=== PATIENT | female | born 1945 ===

== ENCOUNTER 2018-02-25 23:08 | Observation (INO) ==
[2018-02-26] MEDS ORDERED: LABETALOL 20 MG/4 ML SYRINGE IV STA (00:05)
[2018-02-26] MEDS ORDERED: LABETALOL 100 MG/20 ML VIAL IV ONE (00:10)
[2018-02-26] MEDS ORDERED: ONDANSETRON 4 MG/2 ML VIAL IV PRN (00:54)
[2018-02-26] MEDS ORDERED: MAGNESIUM SULF RIDER 4 GM in PREMIX 1 EACH IV PRN (00:54)
[2018-02-26] MEDS ORDERED: diphenhydrAMINE CAP 25 MG CAPSULE PO PRN (00:54)
[2018-02-26] MEDS ORDERED: LACTULOSE 20 GM/30 ML UDCUP PO PRN (00:54)
[2018-02-26] MEDS ORDERED: hydrALAZINE 20 MG/1 ML VIAL IV PRN (00:54)
[2018-02-26] MEDS ORDERED: ACETAMINOPHEN 325 MG TABLET PO PRN (00:54)
[2018-02-26] MEDS ORDERED: MAGNESIUM SULF RIDER 2 GM in PREMIX 1 EACH IV PRN (00:54)
[2018-02-26] MEDS ORDERED: SODIUM CHLORIDE 0.9% 1,000 ML IV SCH (01:00)
[2018-02-26 01:23] LABS: Apearance,Urine CLEAR (Clear); Bacteria,Urine Occasional /HPF (Few); Bilirubin,Urine Negative (Negative); Blood, Urine Negative (Negative); Glucose,Urine (UA) Negative (Negative); Ketones,Urine Negative (Negative); Mucus,Urine Occasional /LPF (Occasional); Nitrite,Urine Negative (Negative); Protein,Urine Negative; RBC,Urine <1 /HPF (0-4); Squamous Epithelial Cell,Urine Occasional /HPF (0-10); Urine Color Yellow (Yellow); Urine Specific Gravity 1.009 (1.001-1.035); WBC,Urine 2 /HPF (0-6)
[2018-02-26 02:50] LABS: Basophils % 0.4 % (0.0-0.8); Eosinophils # 0.1 10*3/uL (0.0-0.87); Eosinophils % 1.8 % (0.00-10.9); Hematocrit 35.8 VOL% (35.7-47.0); Hemoglobin 12.9 GM/DL (12.0-16.0); Immature Granulocytes % 0.4 %; Immature Granulocytes Absolute 0.03 #; Lymphocytes # 2.3 10*3/uL (1.4-4.0); Mean Corpuscular Hemoglobin 32 PG (27-34); Mean Corpuscular Volume 88.6 FL (87-102); Mean Platelet Volume 11.1 FL (9.6-12.0); Monocytes # 0.6 10*3/uL (0.11-0.8); Monocytes % 8.7 % (1.7-12.7); Neutrophils % 56.7 % (38.7-73.9); Platelet Count 124 T/CUMM (130-400); Red Blood Count 4.04 MC/CUMM (3.8-5.5); Red Cell Distribution Width 12.9 % (9.3-17.3)
[2018-02-26 03:25] LABS: Bilirubin,Total 0.7 MG/DL (0.2-1.0); Calcium 8.5 MG/DL (8.5-10.1); Osmolality,Calculated 289.4 MOS/KG (273-304); Potassium 3.2 MMOL/L (3.5-5.1); Total Protein 6.3 G/DL (6.4-8.3)
[2018-02-26 03:26] LABS: Risk Ratio 2.87; Thyroid Stimulating Hormone 3.57 uIU/ml (0.358-3.74); VLDL CHOLESTEROL 14.8 MG/DL
[2018-02-26] MEDS: POTASSIUM CHLORIDE 20 MEQ TABLET PO PRN ×2 (09:30→16:34)
[2018-02-26] MEDS: metFORMIN 500 MG TABLET PO SCH ×2 (09:31→21:15)
[2018-02-26] MEDS: MECLIZINE 25 MG TABLET PO SCH ×3 (09:31→21:15)
[2018-02-26] MEDS: ASPIRIN EC 81 MG TABLET PO SCH (09:32)
[2018-02-26] MEDS: PANTOPRAZOLE 40 MG TABLET PO SCH (09:32)
[2018-02-26] MEDS ORDERED: amLODIPine 5 MG TABLET PO SCH (10:30)
[2018-02-26] MEDS: amLODIPine 10 MG TABLET PO SCH (13:15)
[2018-02-26] MEDS: METOPROLOL SUCCINATE XL 100 MG TABLET PO SCH (13:15)
[2018-02-27] MEDS: metFORMIN 500 MG TABLET PO SCH ×2 (09:29→20:52)
[2018-02-27] MEDS: PANTOPRAZOLE 40 MG TABLET PO SCH (09:29)
[2018-02-27] MEDS: MECLIZINE 25 MG TABLET PO SCH ×3 (09:29→20:52)
[2018-02-27] MEDS: amLODIPine 10 MG TABLET PO SCH (09:29)
[2018-02-27] MEDS: METOPROLOL SUCCINATE XL 100 MG TABLET PO SCH (09:30)
[2018-02-27] MEDS: ASPIRIN EC 81 MG TABLET PO SCH (09:30)
[2018-02-28] MEDS: AMOXICILLIN 500 MG CAPSULE PO SCH ×3 (09:22→21:15)
[2018-02-28] MEDS: MECLIZINE 25 MG TABLET PO SCH ×3 (09:23→21:15)
[2018-02-28] MEDS: metFORMIN 500 MG TABLET PO SCH ×2 (09:23→21:15)
[2018-02-28] MEDS: amLODIPine 10 MG TABLET PO SCH (09:23)
[2018-02-28] MEDS: ASPIRIN EC 81 MG TABLET PO SCH (09:23)
[2018-02-28] MEDS: PANTOPRAZOLE 40 MG TABLET PO SCH (09:23)
[2018-02-28] MEDS: METOPROLOL SUCCINATE XL 100 MG TABLET PO SCH (09:23)
[2018-02-28] MEDS ORDERED: ROSUVASTATIN 10 MG TABLET PO SCH (21:00)
[2018-02-28] MEDS: CIPROFLOXACIN/DEXAMETHASONE OTIC SUSP 7.5 ML BOTTLE BOTH EARS SCH (21:15)
[2018-02-28] MEDS: MUPIROCIN 2% OINT 22 GM TUBE TOP SCH (21:16)
[2018-03-01 04:18] LABS: Basophils % 0.6 % (0.0-0.8); Eosinophils # 0.3 10*3/uL (0.0-0.87); Eosinophils % 3.6 % (0.00-10.9); Hematocrit 37.4 VOL% (35.7-47.0); Immature Granulocytes % 0.1 %; Immature Granulocytes Absolute 0.01 #; Lymphocytes # 2.5 10*3/uL (1.4-4.0); Lymphocytes % 36.3 % (21.3-54.2); Mean Corpuscular HGB Conc 34.8 GM/DL (32-36); Mean Corpuscular Hemoglobin 32 PG (27-34); Mean Corpuscular Volume 92.6 FL (87-102); Mean Platelet Volume 10.9 FL (9.6-12.0); Monocytes # 0.6 10*3/uL (0.11-0.8); Monocytes % 8.3 % (1.7-12.7); Neutrophils # 3.6 10*3/uL (1.4-7.4); Neutrophils % 51.1 % (38.7-73.9); Platelet Count 139 T/CUMM (130-400); Red Blood Count 4.04 MC/CUMM (3.8-5.5); Red Cell Distribution Width 12.4 % (9.3-17.3)
[2018-03-01 04:53] LABS: Calcium 8.4 MG/DL (8.5-10.1); Osmolality,Calculated 288.7 MOS/KG (273-304)
[2018-03-01] MEDS: PANTOPRAZOLE 40 MG TABLET PO SCH (08:27)
[2018-03-01] MEDS: ASPIRIN EC 81 MG TABLET PO SCH (08:28)
[2018-03-01] MEDS: AMOXICILLIN 500 MG CAPSULE PO SCH ×2 (08:28→15:32)
[2018-03-01] MEDS: metFORMIN 500 MG TABLET PO SCH (08:28)
[2018-03-01] MEDS: MECLIZINE 25 MG TABLET PO SCH ×2 (08:28→15:28)
[2018-03-01] MEDS: amLODIPine 10 MG TABLET PO SCH (08:28)
[2018-03-01] MEDS: CIPROFLOXACIN/DEXAMETHASONE OTIC SUSP 7.5 ML BOTTLE BOTH EARS SCH (08:29)
[2018-03-01] MEDS: METOPROLOL SUCCINATE XL 100 MG TABLET PO SCH (08:29)
[2018-03-01] MEDS: MUPIROCIN 2% OINT 22 GM TUBE TOP SCH (08:30)
[2018-03-01] MEDS ORDERED: FLUCONAZOLE 150 MG TABLET PO ONE (11:26)
[2018-03-01 12:29] VITALS: BP 163/70
== END 2018-03-01 16:00 | disposition home or self-care (01) ==
LOC: EDUNIT# → N.EDINP 23:08 → N.ED 23:08 → SUATTDRO 02-26 00:54 → N.TELES 02-26 01:26
PROVIDERS: ADMIT Internal Medicine; ATTEND Internal Medicine

== ENCOUNTER 2022-02-19 20:07 | Observation (INO) ==
[2022-02-19] MEDS ORDERED: PANTOPRAZOLE 40 MG VIAL IV STA (20:42)
[2022-02-19] MEDS ORDERED: ONDANSETRON 4 MG/2 ML VIAL IV STA (20:42)
[2022-02-19] MEDS ORDERED: ALUM/MAG/SIMETH/LIDO VISC 1:1 30 ML BOTTLE PO STA (20:42)
[2022-02-19] MEDS ORDERED: SODIUM CHLORIDE 0.9% 500 ML IV STA (20:42)
[2022-02-19] MEDS ORDERED: HYDROmorphone 1 MG/1 ML SYRINGE IV STA (20:42)
[2022-02-19 21:52] LABS: Basophils % 0.6 % (0.0-0.8); Eosinophils # 0.1 10*3/uL (0.0-0.87); Eosinophils % 1.9 % (0.00-10.9); Hematocrit 36.1 VOL% (35.7-47.0); Hemoglobin 13.1 GM/DL (12.0-16.0); Immature Granulocytes % 0.2 %; Immature Granulocytes Absolute 0.01 #; Lymphocytes # 1.5 10*3/uL (1.4-4.0); Lymphocytes % 32.1 % (21.3-54.2); Mean Corpuscular HGB Conc 36.3 GM/DL (32-36); Mean Corpuscular Volume 93.3 FL (87-102); Mean Platelet Volume 11.7 FL (9.6-12.0); Monocytes # 0.5 10*3/uL (0.11-0.8); Monocytes % 9.9 % (1.7-12.7); Neutrophils % 55.3 % (38.7-73.9); Platelet Count 77 T/CUMM (130-400); Red Blood Count 3.87 MC/CUMM (3.8-5.5); Red Cell Distribution Width 12.9 % (9.3-17.3); White Blood Count 4.6 T/CUMM (4-12)
[2022-02-19 22:11] LABS: Albumin 2.7 G/DL (3.4-5.0); Bilirubin,Total 1.4 MG/DL (0.20-1.00); Calcium 8.7 MG/DL (8.5-10.1); Osmolality,Calculated 289.7 MOS/KG (273-304); Potassium 2.9 MMOL/L (3.5-5.1); Total Protein 5.9 G/DL (6.4-8.2)
[2022-02-19] MEDS ORDERED: KETOROLAC 30 MG/1 ML VIAL IV STA (22:21)
[2022-02-19] MEDS ORDERED: MAGNESIUM SULF RIDER 2 GM/50 ML PREMIX IV STA (22:21)
[2022-02-19 22:24] LABS: Platelet Estimate Adequate
[2022-02-19] MEDS ORDERED: PROMETHAZINE 25 MG/1 ML VIAL IM STA (22:59)
[2022-02-20] MEDS ORDERED: POTASSIUM CHLORIDE 20 MEQ TABLET PO STA (00:14)
[2022-02-20] MEDS ORDERED: POTASSIUM CHLORIDE RIDER 10 MEQ/100 ML PREMIX IV PRN (00:15)
[2022-02-20] MEDS ORDERED: diphenhydrAMINE CAP 25 MG CAPSULE PO PRN (00:47)
[2022-02-20] MEDS ORDERED: NICOTINE 21 MG/24 HR PATCH TRANSDERM PRN (00:47)
[2022-02-20] MEDS ORDERED: PROMETHAZINE 25 MG/1 ML VIAL IM PRN (00:47)
[2022-02-20] MEDS ORDERED: ACETAMINOPHEN 325 MG TABLET PO PRN (00:47)
[2022-02-20] MEDS ORDERED: DEXTROSE 10% 250 ML BAG IV PRN (00:47)
[2022-02-20] MEDS ORDERED: guaiFENesin/DM ER 600-30 MG TABLET PO PRN (00:47)
[2022-02-20] MEDS ORDERED: ONDANSETRON 4 MG/2 ML VIAL IV PRN (00:47)
[2022-02-20] MEDS ORDERED: hydrALAZINE 20 MG/1 ML VIAL IV PRN (00:47)
[2022-02-20] MEDS ORDERED: GLUCAGON 1 MG VIAL IM PRN (00:47)
[2022-02-20] MEDS: ALBUTEROL/IPRATROPIUM 3 ML NEB RESP TX SCH ×4 (01:14→19:40)
[2022-02-20 02:43] LABS: Bacteria,Urine Occasional /HPF (Few); Bilirubin,Urine Negative (Negative); Blood, Urine Moderate mg/dL (Negative); Glucose,Urine (UA) Negative (Negative); Ketones,Urine Negative (Negative); Mucus,Urine Occasional /LPF (Occasional); Nitrite,Urine Positive (Negative); Protein,Urine Negative (Negative); RBC,Urine 1 /HPF (0-4); Squamous Epithelial Cell,Urine Occasional /HPF (0-10); Urine Appearance Clear (Clear); Urine Color Yellow (Yellow); Urine Specific Gravity 1.015 (1.001-1.035)
[2022-02-20 04:31] LABS: Basophils % 0.2 % (0.0-0.8); Hematocrit 37.4 VOL% (35.7-47.0); Hemoglobin 13.3 GM/DL (12.0-16.0); Immature Granulocytes % 0.2 %; Immature Granulocytes Absolute 0.01 #; Lymphocytes # 0.9 10*3/uL (1.4-4.0); Lymphocytes % 19.9 % (21.3-54.2); Mean Corpuscular HGB Conc 35.6 GM/DL (32-36); Mean Corpuscular Volume 94.4 FL (87-102); Mean Platelet Volume 11.7 FL (9.6-12.0); Monocytes # 0.3 10*3/uL (0.11-0.8); Monocytes % 5.5 % (1.7-12.7); Neutrophils % 74.2 % (38.7-73.9); Platelet Count 76 T/CUMM (130-400); Red Blood Count 3.96 MC/CUMM (3.8-5.5); White Blood Count 4.7 T/CUMM (4-12)
[2022-02-20 04:48] LABS: Calcium 8.2 MG/DL (8.5-10.1); Osmolality,Calculated 294.4 MOS/KG (273-304); Potassium 3.4 MMOL/L (3.5-5.1)
[2022-02-20 04:49] LABS: Platelet Estimate Decreased
[2022-02-20 08:09] LABS: Risk Ratio 2.42; VLDL Cholesterol 12.2 MG/DL
[2022-02-20] MEDS ORDERED: DEXTROSE 5% NACL 0.45% 1,000 ML IV SCH (09:00)
[2022-02-20] MEDS: INSULIN LISPRO 100 UNIT/ML SUBCUT SCH ×4 (09:42→22:14)
[2022-02-20] MEDS: DEXT 5% NACL 0.45% KCL 20 MEQ 20 MEQ/1,000 ML BAG IV SCH (09:46)
[2022-02-20] MEDS: PANTOPRAZOLE 40 MG TABLET PO SCH (09:46)
[2022-02-20] MEDS: HEPARIN 5,000 UNIT/1 ML VIAL SUBCUT SCH ×2 (09:46→22:12)
[2022-02-20] MEDS ORDERED: LEVOFLOXACIN INJ 750 MG/150 ML PREMIX IV SCH (13:30)
[2022-02-20 15:26] LABS: Total Protein 5.9 G/DL (6.4-8.2)
[2022-02-20] MEDS: lisinopriL 20 MG TABLET PO SCH (17:04)
[2022-02-20] MEDS: amLODIPine 5 MG TABLET PO SCH (17:04)
[2022-02-21] MEDS: ALBUTEROL/IPRATROPIUM 3 ML NEB RESP TX SCH ×3 (02:26→12:38)
[2022-02-21 06:36] LABS: Basophils % 0.3 % (0.0-0.8); Eosinophils % 0.1 % (0.00-10.9); Hematocrit 36.6 VOL% (35.7-47.0); Hemoglobin 12.7 GM/DL (12.0-16.0); Immature Granulocytes % 0.4 %; Immature Granulocytes Absolute 0.04 #; Lymphocytes # 1.5 10*3/uL (1.4-4.0); Lymphocytes % 13.7 % (21.3-54.2); Mean Corpuscular HGB Conc 34.7 GM/DL (32-36); Mean Corpuscular Volume 96.6 FL (87-102); Mean Platelet Volume 12.3 FL (9.6-12.0); Monocytes # 0.6 10*3/uL (0.11-0.8); Monocytes % 5.8 % (1.7-12.7); Neutrophils % 79.7 % (38.7-73.9); Red Blood Count 3.79 MC/CUMM (3.8-5.5); Red Cell Distribution Width 13.1 % (9.3-17.3); White Blood Count 10.9 T/CUMM (4-12)
[2022-02-21 06:37] LABS: Platelet Count 82 T/CUMM (130-400)
[2022-02-21 06:52] LABS: Albumin 2.3 G/DL (3.4-5.0); Bilirubin,Total 1.5 MG/DL (0.20-1.00); Calcium 8.2 MG/DL (8.5-10.1); Potassium 3.2 MMOL/L (3.5-5.1); Total Protein 5.7 G/DL (6.4-8.2)
[2022-02-21 07:39] LABS: Platelet Estimate Decreased
[2022-02-21] MEDS ORDERED: NITROGLYCERIN SL 0.4 MG TABLET SL PRN (08:09)
[2022-02-21] MEDS ORDERED: ISOSORBIDE MONONITRATE 30 MG TABLET PO SCH (09:00)
[2022-02-21] MEDS ORDERED: ASPIRIN EC 81 MG TABLET PO SCH (09:00)
[2022-02-21] MEDS ORDERED: METOPROLOL SUCCINATE XL 25 MG TABLET PO SCH (09:00)
[2022-02-21] MEDS: amLODIPine 5 MG TABLET PO SCH (09:59)
[2022-02-21] MEDS: PANTOPRAZOLE 40 MG TABLET PO SCH (09:59)
[2022-02-21] MEDS: lisinopriL 20 MG TABLET PO SCH (09:59)
[2022-02-21] MEDS: INSULIN LISPRO 100 UNIT/ML SUBCUT SCH ×2 (09:59→11:58)
[2022-02-21] MEDS: HEPARIN 5,000 UNIT/1 ML VIAL SUBCUT SCH (10:00)
[2022-02-21] MEDS: DEXT 5% NACL 0.45% KCL 20 MEQ 20 MEQ/1,000 ML BAG IV SCH ×2 (10:00→11:58)
[2022-02-21 11:43] VITALS: BP 149/54
[2022-02-23 07:43] LABS: Immunoglobulin G (Chem) 1220 MG/DL (700-1600); Total Protein (Chem) 5.9 G/DL (6.4-8.3)
[2022-02-23 07:44] LABS: Immunoglobulin A (Chem) 324 MG/DL (70-400); Immunoglobulin M (Chem) 89 MG/DL (40-230)
[2022-02-23 09:04] LABS: Albumin (SPE) 3.5 G/DL (3.2-5.3); Albumin (SPE) Rel % 59.3 %; Alpha 1 (SPE) 0.2 G/DL (0.1-0.4); Alpha 1 (SPE) Rel % 2.6 %; Alpha 2 (SPE) 0.5 G/DL (0.4-1.0); Alpha 2 (SPE) Rel % 8.3 %; Beta (SPE) 0.6 G/DL (0.5-1.1); Beta (SPE) Rel % 9.7 %; Gamma (SPE) 1.2 G/DL (0.7-1.7); Gamma (SPE) Rel % 20.1 %
[2022-02-23] MEDS ORDERED: diphenhydrAMINE CAP 50 MG CAPSULE PO ONE (09:12)
[2022-02-23] MEDS ORDERED: DIAZEPAM 5 MG TABLET PO ONE (09:12)
[2022-02-23 14:40] LABS: Kappa Free Light Chain 5.56 mg/dL; Lambda Free Light Chain 5.15 mg/dL
== END 2022-02-21 15:08 | disposition home or self-care (01) ==
LOC: EDUNIT# → EDBD → N.EDINP 20:07 → N.ED 20:07 → SUATTDRO 02-20 00:47 → N.EDINP 02-20 02:37 → N.TELEN 02-20 03:07
PROVIDERS: ADMIT Emergency Medicine; ATTEND Family Medicine

== ENCOUNTER 2022-06-05 09:06 | Inpatient (IN) ==
[2022-06-05 09:55] LABS: Basophils % 0.6 % (0.0-0.8); Eosinophils # 0.1 10*3/uL (0.0-0.87); Eosinophils % 0.9 % (0.00-10.9); Hematocrit 41.1 VOL% (35.7-47.0); Hemoglobin 14.5 GM/DL (12.0-16.0); Immature Granulocytes % 0.3 %; Immature Granulocytes Absolute 0.02 #; Lymphocytes # 1.6 10*3/uL (1.4-4.0); Lymphocytes % 23.8 % (21.3-54.2); Mean Corpuscular HGB Conc 35.3 GM/DL (32-36); Mean Corpuscular Volume 94.5 FL (87-102); Mean Platelet Volume 11.6 FL (9.6-12.0); Monocytes # 0.6 10*3/uL (0.11-0.8); Monocytes % 8.7 % (1.7-12.7); Neutrophils % 65.7 % (38.7-73.9); Red Blood Count 4.35 MC/CUMM (3.8-5.5); Red Cell Distribution Width 13.2 % (9.3-17.3); White Blood Count 6.6 T/CUMM (4-12)
[2022-06-05 09:56] LABS: Bilirubin,Total 1.2 MG/DL (0.20-1.00); Calcium 9.2 MG/DL (8.5-10.1); Osmolality,Calculated 294.4 MOS/KG (273-304); Platelet Count 95 T/CUMM (130-400); Potassium 3.5 MMOL/L (3.5-5.1); Total Protein 6.3 G/DL (6.4-8.2)
[2022-06-05 09:57] LABS: Bilirubin,Urine Negative (Negative); Blood, Urine Large mg/dL (Negative); Glucose,Urine (UA) Negative (Negative); Ketones,Urine Negative (Negative); Nitrite,Urine Negative (Negative); Protein,Urine 30 mg/dL (Negative); RBC,Urine 243 /HPF (0-4); Squamous Epithelial Cell,Urine Occasional /HPF (0-10); Urine Appearance Clear (Clear); Urine Color Yellow (Yellow); Urine pH 7.5 (4.5-8.0)
[2022-06-05 10:00] LABS: INR 1.1; PT Patient Result 11.9 SECS (10.1-12.1); Partial Thromboplastin Time 26.2 SECS (23.7-32.9)
[2022-06-05] MEDS ORDERED: ASPIRIN CHEW 81 MG TABLET PO STA (10:02)
[2022-06-05] MEDS: ENOXAPARIN 80 MG/0.8 ML SYRINGE SUBCUT SCH ×2 (11:49→23:03)
[2022-06-05] MEDS ORDERED: ONDANSETRON 4 MG/2 ML VIAL IV PRN (11:56)
[2022-06-05] MEDS ORDERED: MAGNESIUM HYDROXIDE SUSP 30 ML UDCUP PO PRN (11:56)
[2022-06-05] MEDS ORDERED: MAGNESIUM SULF RIDER 2 GM/50 ML PREMIX IV PRN ×2 (11:56→14:58)
[2022-06-05] MEDS ORDERED: MORPHINE 2 MG/1 ML SYRINGE IV PRN (11:56)
[2022-06-05] MEDS ORDERED: ACETAMINOPHEN 325 MG TABLET PO PRN (11:56)
[2022-06-05] MEDS ORDERED: POTASSIUM CHLORIDE 20 MEQ TABLET PO PRN ×2 (11:56)
[2022-06-05] MEDS ORDERED: BISACODYL 5 MG TABLET PO PRN (11:56)
[2022-06-05] MEDS ORDERED: ALUM/MAG/SIMETH/LIDO VISC 1:1 30 ML BOTTLE PO PRN (11:56)
[2022-06-05] MEDS ORDERED: MAGNESIUM SULF RIDER 4 GM/100 ML PREMIX IV PRN (11:56)
[2022-06-05] MEDS ORDERED: NITROGLYCERIN 2% OINT 1 INCH/GM PACK TOP SCH (12:00)
[2022-06-05] MEDS ORDERED: METOPROLOL TARTRATE 25 MG TABLET PO ONE (14:09)
[2022-06-05] MEDS ORDERED: hydrALAZINE 20 MG/1 ML VIAL IV PRN (14:28)
[2022-06-05] MEDS ORDERED: POTASSIUM CHLORIDE RIDER 10 MEQ/100 ML PREMIX IV PRN (14:58)
[2022-06-05] MEDS ORDERED: DIAZEPAM 5 MG TABLET PO ONE (14:58)
[2022-06-05] MEDS ORDERED: diphenhydrAMINE CAP 50 MG CAPSULE PO ONE (14:58)
[2022-06-05] MEDS: SODIUM CHLORIDE 0.9% 1,000 ML IV SCH (15:49)
[2022-06-05] MEDS ORDERED: MIDAZOLAM 2 MG/2 ML VIAL ONE (15:52)
[2022-06-05] MEDS ORDERED: VERAPAMIL 5 MG/2 ML VIAL ONE (15:52)
[2022-06-05] MEDS ORDERED: fentaNYL 100 MCG/2 ML VIAL ONE (15:52)
[2022-06-05] MEDS ORDERED: NITROGLYCERIN DRIP 50 MG/250 ML BOTTLE IV ONE (15:52)
[2022-06-05] MEDS: ISOSORBIDE MONONITRATE 30 MG TABLET PO SCH (17:55)
[2022-06-05] MEDS: METOPROLOL TARTRATE 50 MG TABLET PO SCH (21:47)
[2022-06-05] MEDS: DOCUSATE SODIUM 100 MG CAPSULE PO SCH (21:47)
[2022-06-06 04:40] LABS: Calcium 8.4 MG/DL (8.5-10.1); Osmolality,Calculated 285.8 MOS/KG (273-304); Potassium 3.6 MMOL/L (3.5-5.1)
[2022-06-06 04:51] LABS: Risk Ratio 2.42; Thyroid Stimulating Hormone 1.42 uIU/ml (0.358-3.74); VLDL Cholesterol 12.2 MG/DL
[2022-06-06 07:07] LABS: Barbiturates Screen,Urine Negative (Negative); Benzodiazepines Screen,Urine Positive (Negative); Cannabinoid Screen,Urine Negative (Negative); Opiate Screen,Urine Negative (Negative); Phencyclidine Screen,Urine Negative (Negative)
[2022-06-06] MEDS: SODIUM CHLORIDE 0.9% 1,000 ML IV SCH ×2 (07:29→07:30)
[2022-06-06 08:56] LABS: Basophils # 0.1 10*3/uL (0.0-0.2); Basophils % 0.8 % (0.0-0.8); Eosinophils # 0.2 10*3/uL (0.0-0.87); Eosinophils % 2.7 % (0.00-10.9); Hematocrit 35.6 VOL% (35.7-47.0); Hemoglobin 12.5 GM/DL (12.0-16.0); Immature Granulocytes % 0.3 %; Immature Granulocytes Absolute 0.02 #; Lymphocytes # 1.2 10*3/uL (1.4-4.0); Lymphocytes % 19.4 % (21.3-54.2); Mean Corpuscular HGB Conc 35.1 GM/DL (32-36); Mean Corpuscular Volume 93.7 FL (87-102); Mean Platelet Volume 12.5 FL (9.6-12.0); Monocytes # 0.6 10*3/uL (0.11-0.8); Monocytes % 9.4 % (1.7-12.7); Neutrophils % 67.4 % (38.7-73.9); Red Cell Distribution Width 13.4 % (9.3-17.3); White Blood Count 6.4 T/CUMM (4-12)
[2022-06-06 08:57] LABS: Platelet Count 97 T/CUMM (130-400)
[2022-06-06] MEDS ORDERED: METOPROLOL TARTRATE 25 MG TABLET PO SCH (09:00)
[2022-06-06] MEDS ORDERED: ROSUVASTATIN 20 MG TABLET PO SCH (09:00)
[2022-06-06] MEDS ORDERED: PANTOPRAZOLE 40 MG TABLET PO SCH (09:00)
[2022-06-06] MEDS ORDERED: lisinopriL 20 MG TABLET PO SCH (09:00)
[2022-06-06] MEDS ORDERED: POLYETHYLENE GLYCOL POWDER 17 GM PACK PO SCH (09:00)
[2022-06-06] MEDS ORDERED: amLODIPine 5 MG TABLET PO SCH (09:00)
[2022-06-06] MEDS ORDERED: ASPIRIN EC 81 MG TABLET PO SCH (09:00)
[2022-06-06 09:13] LABS: Platelet Estimate Decreased
[2022-06-06 09:14] LABS: Anisocytosis Slight; Burr Cells Few; Macrocytosis Slight
[2022-06-06] MEDS: DOCUSATE SODIUM 100 MG CAPSULE PO SCH (09:54)
[2022-06-06] MEDS: ISOSORBIDE MONONITRATE 30 MG TABLET PO SCH (09:54)
[2022-06-06] MEDS: METOPROLOL TARTRATE 50 MG TABLET PO SCH (09:54)
[2022-06-06] MEDS ORDERED: CLOPIDOGREL 75 MG TABLET PO SCH (11:00)
[2022-06-06 14:14] VITALS: BP 148/76
== END 2022-06-06 15:06 | disposition home or self-care (01) | DRG 281 ==
LOC: N.ED 09:06 → N.TELEN 09:06 → SUATTDRO 11:55 → N.TELEN 11:59
PROVIDERS: ADMIT Internal Medicine; ATTEND Internal Medicine
PROC: CLCCHCL (ICD-10-PCS; 2022-06-05 15:45)

== ENCOUNTER 2022-06-26 11:06 | Observation (INO) ==
[2022-06-26] MEDS ORDERED: ASPIRIN 325 MG TABLET PO STA (12:23)
[2022-06-26 12:53] LABS: Basophils # 0.1 10*3/uL (0.0-0.2); Basophils % 0.9 % (0.0-0.8); Eosinophils # 0.1 10*3/uL (0.0-0.87); Eosinophils % 0.9 % (0.00-10.9); Hematocrit 35.4 VOL% (35.7-47.0); Hemoglobin 12.5 GM/DL (12.0-16.0); Immature Granulocytes % 0.2 %; Immature Granulocytes Absolute 0.01 #; Lymphocytes # 1.6 10*3/uL (1.4-4.0); Lymphocytes % 27.9 % (21.3-54.2); Mean Corpuscular HGB Conc 35.3 GM/DL (32-36); Mean Corpuscular Volume 93.7 FL (87-102); Mean Platelet Volume 11.6 FL (9.6-12.0); Monocytes # 0.6 10*3/uL (0.11-0.8); Monocytes % 10.7 % (1.7-12.7); Neutrophils % 59.4 % (38.7-73.9); Platelet Count 91 T/CUMM (130-400); Red Blood Count 3.78 MC/CUMM (3.8-5.5); Red Cell Distribution Width 13.2 % (9.3-17.3); White Blood Count 5.6 T/CUMM (4-12)
[2022-06-26 13:00] LABS: INR 1.1; PT Patient Result 11.6 SECS (10.1-12.1); Partial Thromboplastin Time 24.5 SECS (23.7-32.9)
[2022-06-26 13:18] LABS: Albumin 2.7 G/DL (3.4-5.0); Bilirubin,Total 0.9 MG/DL (0.20-1.00); Calcium 8.5 MG/DL (8.5-10.1); Osmolality,Calculated 289.8 MOS/KG (273-304); Potassium 3.8 MMOL/L (3.5-5.1); Total Protein 5.9 G/DL (6.4-8.2)
[2022-06-26 14:25] LABS: Platelet Estimate Decreased
[2022-06-26] MEDS ORDERED: DOCUSATE SODIUM 100 MG CAPSULE PO PRN (14:31)
[2022-06-26] MEDS ORDERED: hydrALAZINE 20 MG/1 ML VIAL IV PRN (14:31)
[2022-06-26] MEDS ORDERED: ONDANSETRON 4 MG/2 ML VIAL IV PRN (14:31)
[2022-06-26] MEDS ORDERED: ACETAMINOPHEN 325 MG TABLET PO PRN (14:31)
[2022-06-26] MEDS ORDERED: NITROGLYCERIN SL 0.4 MG TABLET SL PRN (15:16)
[2022-06-26] MEDS ORDERED: MORPHINE 2 MG/1 ML SYRINGE IV PRN (15:16)
[2022-06-26] MEDS: lisinopriL 20 MG TABLET PO SCH (16:07)
[2022-06-26] MEDS: ENOXAPARIN 60 MG/0.6 ML SYRINGE SUBCUT SCH (17:10)
[2022-06-26] MEDS: ALBUTEROL 2.5 MG/3 ML NEB RESP TX SCH (18:46)
[2022-06-26] MEDS: METOPROLOL TARTRATE 50 MG TABLET PO SCH (20:45)
[2022-06-27] MEDS: ALBUTEROL 2.5 MG/3 ML NEB RESP TX SCH ×4 (03:45→20:44)
[2022-06-27] MEDS: ENOXAPARIN 60 MG/0.6 ML SYRINGE SUBCUT SCH (05:23)
[2022-06-27 05:32] LABS: Basophils # 0.1 10*3/uL (0.0-0.2); Eosinophils # 0.2 10*3/uL (0.0-0.87); Hematocrit 34.6 VOL% (35.7-47.0); Hemoglobin 12.1 GM/DL (12.0-16.0); Immature Granulocytes % 0.2 %; Immature Granulocytes Absolute 0.01 #; Lymphocytes # 1.6 10*3/uL (1.4-4.0); Lymphocytes % 33.7 % (21.3-54.2); Mean Corpuscular Volume 95.3 FL (87-102); Mean Platelet Volume 12.1 FL (9.6-12.0); Monocytes # 0.5 10*3/uL (0.11-0.8); Monocytes % 11.2 % (1.7-12.7); Neutrophils % 49.9 % (38.7-73.9); Platelet Count 92 T/CUMM (130-400); Red Blood Count 3.63 MC/CUMM (3.8-5.5); Red Cell Distribution Width 13.2 % (9.3-17.3); White Blood Count 4.8 T/CUMM (4-12)
[2022-06-27 05:48] LABS: Calcium 8.3 MG/DL (8.5-10.1); Osmolality,Calculated 290.6 MOS/KG (273-304); Potassium 3.6 MMOL/L (3.5-5.1); Thyroid Stimulating Hormone 2.87 uIU/ml (0.358-3.74)
[2022-06-27 06:34] LABS: Platelet Estimate Decreased
[2022-06-27] MEDS ORDERED: ISOSORBIDE MONONITRATE 30 MG TABLET PO SCH (09:00)
[2022-06-27] MEDS: METOPROLOL TARTRATE 50 MG TABLET PO SCH ×2 (09:24→21:04)
[2022-06-27] MEDS: PANTOPRAZOLE 40 MG TABLET PO SCH (09:24)
[2022-06-27] MEDS: ISOSORBIDE MONONITRATE 60 MG TABLET PO SCH (09:24)
[2022-06-27] MEDS: CLOPIDOGREL 75 MG TABLET PO SCH (09:24)
[2022-06-27] MEDS: ASPIRIN EC 81 MG TABLET PO SCH (09:24)
[2022-06-27] MEDS: ROSUVASTATIN 20 MG TABLET PO SCH (09:24)
[2022-06-27] MEDS: lisinopriL 20 MG TABLET PO SCH (09:24)
[2022-06-27] MEDS ORDERED: ALUMINUM/MAGNES/SIMETH MAX STR 30 ML UDCUP PO PRN (09:50)
[2022-06-28] MEDS: ALBUTEROL 2.5 MG/3 ML NEB RESP TX SCH ×2 (01:39→08:16)
[2022-06-28 05:54] LABS: Basophils % 0.8 % (0.0-0.8); Eosinophils # 0.3 10*3/uL (0.0-0.87); Eosinophils % 4.9 % (0.00-10.9); Hematocrit 34.8 VOL% (35.7-47.0); Hemoglobin 11.9 GM/DL (12.0-16.0); Immature Granulocytes % 0.2 %; Immature Granulocytes Absolute 0.01 #; Lymphocytes # 2.4 10*3/uL (1.4-4.0); Lymphocytes % 45.9 % (21.3-54.2); Mean Corpuscular HGB Conc 34.2 GM/DL (32-36); Mean Corpuscular Volume 95.6 FL (87-102); Mean Platelet Volume 11.1 FL (9.6-12.0); Monocytes # 0.5 10*3/uL (0.11-0.8); Monocytes % 10.2 % (1.7-12.7); Platelet Count 102 T/CUMM (130-400); Red Blood Count 3.64 MC/CUMM (3.8-5.5); Red Cell Distribution Width 13.1 % (9.3-17.3); White Blood Count 5.1 T/CUMM (4-12)
[2022-06-28 06:09] LABS: Calcium 8.4 MG/DL (8.5-10.1); Osmolality,Calculated 290.4 MOS/KG (273-304); Potassium 3.6 MMOL/L (3.5-5.1)
[2022-06-28 06:31] LABS: Band Neutrophils 1 % (0-10); Eosinophils 7 % (0-10); Lymphocytes 37 % (20-55); Total Cells Counted 100
[2022-06-28 06:32] LABS: Macrocytosis Slight
[2022-06-28 06:33] LABS: Ovalocytes Slight; Platelet Estimate Decreased
[2022-06-28] MEDS: lisinopriL 20 MG TABLET PO SCH (09:05)
[2022-06-28] MEDS: ISOSORBIDE MONONITRATE 60 MG TABLET PO SCH (09:06)
[2022-06-28] MEDS: ROSUVASTATIN 20 MG TABLET PO SCH (09:06)
[2022-06-28] MEDS: METOPROLOL TARTRATE 50 MG TABLET PO SCH (09:06)
[2022-06-28] MEDS: CLOPIDOGREL 75 MG TABLET PO SCH (09:06)
[2022-06-28] MEDS: PANTOPRAZOLE 40 MG TABLET PO SCH (09:06)
[2022-06-28] MEDS: ASPIRIN EC 81 MG TABLET PO SCH (09:06)
[2022-06-28 11:35] VITALS: BP 126/80
[2022-06-29] MEDS ORDERED: ISOSORBIDE MONONITRATE 30 MG TABLET PO SCH (09:00)
== END 2022-06-28 13:45 | disposition home or self-care (01) ==
LOC: N.ED 11:06 → N.EDINP 11:06 → N.2W 13:29 → SUATTDRO 14:30 → N.2W 15:15
PROVIDERS: ADMIT Hospitalist; ATTEND Internal Medicine